=== PATIENT | male | born 1935 | race Caucasian/White ===

== ENCOUNTER 2017-05-15 22:28 | Observation (INO) | payer OTHER, BC ==
[~2017-05-15] VITALS: Ht 172.7 cm; Wt 91.0 kg
[~2017-05-15 22:28] MED LIST: ADULT LOW DOSE81 M1 PO; ALPRAZOLAM0.5 MG PO; APRESOLINE50 M1 PO; CATAPRES0.1 MG PO; CLONAZEPAM1 MG PO; Catapres-TTS 1 TD; DIOVAN160 MG PO; ECOTRIN325 MG PO; EFFIENT10 MG PO; Ecotrin PO; GLIPIZIDE5 M1; GLUCOPHAGE500 MG; GLUCOTROL10 MG PO; Glucotrol PO; HYDROCHLOROTHIA25 MG PO; LANSOPRAZOLE30 MG PO; LIPITOR10 MG PO; Levaquin PO; METOPROLOL SUC100 MG PO; METOPROLOL SUCC25 MG PO; NITROSTAT,NITR0.4 M1 SL; NORVASC10 MG PO; PERCOCET 10/1 TABLET PO; PERCOCET 7.5-31 EACH PO; PROTONIX40 M1 PO; SPIRONOLACTONE25 MG PO; TEKTURNA150 MG PO; TOPROL XL100 MG PO; TRICOR145 MG PO; ZETIA10 MG; ZETIA10 MG PO
[2017-05-15 23:56] LABS: EOSINOPHIL (%) 0.6 % (0-5); EOSINOPHIL COUNT 0.1 K/uL (0-0.3); HEMATOCRIT 43.6 % (38.0-50.0); IMMATURE GRANULOCYTE (%) 0.5 % (0.0-0.7); IMMATURE GRANULOCYTE COUNT 0.1 K/uL; INSTRUMENT ABS NEUTROPHIL CT 8.4 K/uL; MCH 26.1 PG (29.0-34.0); MCHC 31.7 G/DL (30.0-36.0); MCV 82.4 FL (86-99); MEAN PLAT.VOLUME 10.7 uM^3 (9.0-12.4); MONOCYTE (%) 5.5 % (3-12); MONOCYTE COUNT 0.6 K/uL (0-0.8); NEUTROPHIL (%) 83.2 % (45-76); NEUTROPHIL COUNT 8.4 K/uL (1.8-6.4); PLATELET COUNT 218 K/uL (156-360); RBC DIS.WIDTH-CV 13.9 % (11.8-14.6); RBC DIS.WIDTH-SD 41.1 % (39-53); RED BLOOD COUNT 5.29 M/uL (4.00-5.50)
[2017-05-16 00:20] LABS: TROP-I INTERPRETATION NEGATIVE; TROPONIN-I 0.06 ng/mL (0.0-0.30)
[2017-05-16 00:24] LABS: CHLORIDE 102 mEq/L (99-109); POTASSIUM 4.7 mEq/L (3.7-5.4); SODIUM 137 mEq/L (136-147)
[2017-05-16 00:26] LABS: GLUCOSE 176 mg/dL (70-99)
[2017-05-16 00:28] LABS: ANION GAP 8 MEQ/L (2-14); TOTAL BILIRUBIN 0.7 mg/dL (0.0-1.0)
[2017-05-16 00:30] LABS: ALKALINE PHOSPHATASE 51 IU/L (3-129); GFR ESTIMATE (CALCULATED) 34 mL/min/
[2017-05-16 00:31] LABS: UREA NITROGEN (BUN) 28 mg/dL (9-23)
[2017-05-16 00:34] LABS: LIPASE 40 U/L (1.0-51.0)
[2017-05-16 00:37] LABS: ADD MIUA? YES; BILIRUBIN NEGATIVE; BLOOD SMALL; COLOR YELLOW ((YELLOW)); GLUCOSE (STRIP) NEGATIVE; KETONES NEGATIVE; LEUKOCYTES NEGATIVE; NITRITE NEGATIVE; PROTEIN (STRIP) 100; SPECIFIC GRAVITY 1.011 (1.000-1.030); UROBILINOGEN 0.2 MG/DL (0.2-1.0)
[2017-05-16 00:40] LABS: BACTERIA NONE SEEN /HPF; EPITHELIAL CELLS RARE /HPF; MUCUS NONE SEEN /LPF; UCUL ADDED? NO; WHITE BLOOD CELLS 0-5 /HPF (0-5)
[2017-05-16] MEDS ORDERED: IMDUR30 MG PO (01:38)
[2017-05-16] MEDS ORDERED: PANTOPRAZOLE SO40 MG PO (01:38)
[2017-05-16] MEDS ORDERED: NITROSTAT0.4 MG SL (01:39)
[2017-05-16] MEDS ORDERED: LYRICA50 MG PO (01:39)
[2017-05-16] MEDS ORDERED: ZOFRAN ODT4 MG PO (01:39)
[2017-05-16] MEDS ORDERED: MIRALAX17 GM PO (01:41)
[2017-05-16 03:37] VITALS: BP 134/91
[2017-05-16 05:45] LABS: HEMATOCRIT 41.1 % (38.0-50.0); MCH 26.1 PG (29.0-34.0); MCHC 31.6 G/DL (30.0-36.0); MCV 82.4 FL (86-99); MEAN PLAT.VOLUME 10.9 uM^3 (9.0-12.4); PLATELET COUNT 213 K/uL (156-360); RBC DIS.WIDTH-CV 14.1 % (11.8-14.6); RBC DIS.WIDTH-SD 41.7 % (39-53); RED BLOOD COUNT 4.99 M/uL (4.00-5.50); WHITE BLOOD COUNT 9.1 K/uL (4.1-10.2)
[2017-05-16 06:18] LABS: POINT-OF-CARE METER ID UU13113700
[2017-05-16 06:28] LABS: TROP-I INTERPRETATION NEGATIVE; TROPONIN-I 0.06 ng/mL (0.0-0.30)
[2017-05-16 06:47] LABS: ALKALINE PHOSPHATASE 45 IU/L (3-129); ANION GAP 9 MEQ/L (2-14); CHLORIDE 104 MEQ/L (99-109); GFR ESTIMATE (CALCULATED) 39 mL/min/; GLUCOSE 161 mg/dL (70-99); POTASSIUM 4.6 MEQ/L (3.7-5.4); SAMPLE HEMOLYSIS CHECK 0; SAMPLE ICTERIC CHECK 0; SAMPLE LIPEMIA CHECK 0; SODIUM 139 MEQ/L (136-147); TOTAL BILIRUBIN 0.7 MG/DL (0.0-1.0); UREA NITROGEN (BUN) 28 mg/dL (9-23)
[2017-05-16 08:30] VITALS: BP 177/73
[2017-05-16 08:32] LABS: C-REACTIVE PROTEIN 7.5 MG/L (0-10)
[2017-05-16 08:54] LABS: ERTH.SED.RATE 12 MM/HR (0-20)
[2017-05-16 11:41] VITALS: BP 163/70
[2017-05-16 12:48] LABS: POINT-OF-CARE METER ID UU14162513
[2017-05-16 13:25] LABS: TROP-I INTERPRETATION NEGATIVE; TROPONIN-I 0.09 ng/mL (0.0-0.30)
[2017-05-16] MEDS ORDERED: DICYCLOMINE HCL10 MG PO (14:08)
[2017-05-16] MEDS ORDERED: DILAUDID2 MG PO (14:44)
[2017-05-16 15:29] VITALS: BP 137/77
[2017-05-16 15:55] VITALS: BP 157/70
== END 2017-05-16 17:30 | disposition home or self-care (01) ==
LOC: EME 22:28 → EDOF 05-16 01:26 → ENRESERV 05-16 01:28 → 5WEST 05-16 03:20
PROVIDERS: Emergency Medicine; Internal Medicine
DX: R10.33 Periumbilical pain (principal); G89.29 Other chronic pain; Z98.890 Other specified postprocedural states; E11.9 Type 2 diabetes mellitus without complications; E78.00 Pure hypercholesterolemia, unspecified; I25.10 Atherosclerotic heart disease of native coronary artery without angina pectoris; Z95.5 Presence of coronary angioplasty implant and graft; I10 Essential (primary) hypertension; F41.9 Anxiety disorder, unspecified
CPT/HCPCS: 70486; 71020; 74176; 80053; 81003; 82948; 83605; 83690; 84484; 85025; 85027; 85651; 86140; 93005; 99281; 99283; G0378; J1644; J1815; J2270; J3010; J7030; J7040

== ENCOUNTER → 2017-06-01 | Outpatient (CLI) | payer MEDICARE, BC ==
[~2017-06-01] MED LIST changes: +DICYCLOMINE HCL10 MG PO; +DILAUDID2 MG PO; +IMDUR30 MG PO; +LYRICA50 MG PO; +MIRALAX17 GM PO; +NITROSTAT0.4 MG SL; +PANTOPRAZOLE SO40 MG PO; +PERCOCET 5/31 TABLET PO; +ZOFRAN ODT4 MG PO
== END | disposition home or self-care (01) ==
LOC: CDC 10:46
DX: I49.9 Cardiac arrhythmia, unspecified (principal); I44.7 Left bundle-branch block, unspecified
CPT/HCPCS: 93000

== ENCOUNTER 2017-06-04 13:07 | Day surgery (SDC) | payer OTHER, BC ==
[~2017-06-04] VITALS: Ht 172.7 cm; Wt 94.3 kg
[~2017-06-04 13:07] MED LIST changes: -PERCOCET 5/31 TABLET PO
[2017-06-04 13:45] VITALS: BP 170/81
[2017-06-04 14:59] LABS: ANION GAP 8 MEQ/L (2-14); CHLORIDE 100 MEQ/L (99-109); POTASSIUM 4.8 MEQ/L (3.7-5.4); SAMPLE HEMOLYSIS CHECK 0; SAMPLE ICTERIC CHECK 0; SAMPLE LIPEMIA CHECK 0; SODIUM 136 MEQ/L (136-147)
[2017-06-04 15:04] LABS: GFR ESTIMATE (CALCULATED) 39 mL/min/; GLUCOSE 179 mg/dL (70-99); UREA NITROGEN (BUN) 24 mg/dL (9-23)
[2017-06-04] MEDS ORDERED: PERCOCET 5/31 TABLET PO (17:01)
[2017-06-04 18:20] VITALS: BP 163/74
[2017-06-04 19:15] VITALS: BP 188/93
[2017-06-04 19:30] VITALS: BP 180/74
== END 2017-06-04 19:55 | disposition home or self-care (01) ==
LOC: SDC 13:07
PROVIDERS: Surgery
PROC: 0WBH4ZX Excision of Retroperitoneum, Percutaneous Endoscopic Approach, Diagnostic (ICD-10-PCS; principal; 2017-06-04)
DX: T85.9XXA Unspecified complication of internal prosthetic device, implant and graft, initial encounter (principal); R10.11 Right upper quadrant pain; G89.29 Other chronic pain; K66.0 Peritoneal adhesions (postprocedural) (postinfection); I25.10 Atherosclerotic heart disease of native coronary artery without angina pectoris; I10 Essential (primary) hypertension; E11.9 Type 2 diabetes mellitus without complications; E78.5 Hyperlipidemia, unspecified; K21.9 Gastro-esophageal reflux disease without esophagitis; Z79.82 Long term (current) use of aspirin; Z79.84 Long term (current) use of oral hypoglycemic drugs; Z88.0 Allergy status to penicillin; Z87.891 Personal history of nicotine dependence; Z95.5 Presence of coronary angioplasty implant and graft
CPT/HCPCS: 80048; 88300; 88304; J0131; J0690; J1100; J1170; J2405; J2710; J3010

== ENCOUNTER 2017-11-23 02:32 | Emergency (ER) | payer OTHER, BC ==
[~2017-11-23] VITALS: Ht 172.7 cm; Wt 94.8 kg
[~2017-11-23 02:32] MED LIST changes: +PERCOCET 5/31 TABLET PO
[2017-11-23] MEDS ORDERED: BACTRIM,SEPT1 TABLET PO (03:02)
[2017-11-23 03:56] VITALS: BP 164/68
== END 2017-11-23 03:59 | disposition home or self-care (01) ==
LOC: EME 02:32
DX: J34.0 Abscess, furuncle and carbuncle of nose (principal); J01.90 Acute sinusitis, unspecified; A49.02 Methicillin resistant Staphylococcus aureus infection, unspecified site; I25.2 Old myocardial infarction; I50.9 Heart failure, unspecified; I11.0 Hypertensive heart disease with heart failure; Z86.73 Personal history of transient ischemic attack (TIA), and cerebral infarction without residual deficits; K21.9 Gastro-esophageal reflux disease without esophagitis; F41.9 Anxiety disorder, unspecified; E11.9 Type 2 diabetes mellitus without complications; Z95.5 Presence of coronary angioplasty implant and graft; Z88.0 Allergy status to penicillin; Z79.82 Long term (current) use of aspirin; Z79.891 Long term (current) use of opiate analgesic
CPT/HCPCS: 99281; 99284